=== PATIENT | female | born 1980 | race Caucasian/White ===

== ENCOUNTER 2018-12-18 21:26 | Observation (INO) | payer BC, MEDICAID ==
[~2018-12-18] VITALS: Ht 157.5 cm; Wt 81.2 kg
[2018-12-18 22:00] VITALS: BP 122/87
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
--- NOTE | 2018-12-18 22:10 | NUR ---
PT TRIAGED, SENT BACK TO LOBBY AWAITING FOR BED
--- NOTE | 2018-12-18 23:01 | NUR ---
PT AMBULATED TO BED 6
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
--- NOTE | 2018-12-19 00:15 | NUR ---
PT REFUSING XR AT THIS TIME VSS. WILL CONTIUE TO MONITOR.
--- NOTE | 2018-12-19 00:31 | NUR ---
CALLED REPORT TO L&D NURSE. PT TO BE TRANSFERRED TO OB ROOM 3
[2018-12-19] MEDS ORDERED: ACETAMINOPHEN 325 MG TAB PO ONE (00:35)
[2018-12-19] MEDS ORDERED: ACETAMINOPHEN 325 MG TAB ONE (00:39)
[2018-12-19 01:23] VITALS: BP 127/83
[2018-12-19 01:34] LABS: HEMATOCRIT 33.9 % (36-48); HEMOGLOBIN 10.5 g/dL (12.0-16.0); MEAN CORPUSCULAR HEMOGLOBIN 22 pg (27-31); MEAN CORPUSCULAR HGB CONC 31 g/dL (33-37); MEAN CORPUSCULAR VOLUME 71.1 fL (80-94); PLATELET COUNT (AUTO) 316 K/uL (140-450); RED BLOOD CELL COUNT(AUTO) 4.77 MIL/uL (4.20-5.40); RED CELL DISTRIBUTION WIDTH 17.2 % (11.6-13.7); WHITE BLOOD COUNT (AUTO) 8.7 K/uL (4.8-10.8)
[2018-12-19 02:05] LABS: EOSINOPHILS % (MANUAL) 1 % (0-4); LYMPHOCYTES % (MANUAL) 27 % (20-46); MONOCYTES % (MANUAL) 3 % (5-12)
== END 2018-12-19 05:15 | disposition home or self-care (01) ==
LOC: MED 21:26 → MLD 12-19 00:31 → MED 12-19 00:49 → MLD 12-19 00:50
PROVIDERS: ADMIT Obstetrics & Gynecology; ATTEND Obstetrics & Gynecology
DX: O9A.213 Injury, poisoning and certain other consequences of external causes complicating pregnancy, third trimester (principal); O99.89 Other specified diseases and conditions complicating pregnancy, childbirth and the puerperium; M54.2 Cervicalgia; M54.5 Low back pain; V49.49XA Driver injured in collision with other motor vehicles in traffic accident, initial encounter; Y93.89 Activity, other specified; Y92.488 Other paved roadways as the place of occurrence of the external cause; Z3A.37 37 weeks gestation of pregnancy
CPT/HCPCS: 36415; 76805; 81000; 85025; 85384; 86886; 86900; 86901; 99284; G0378; Q0092; 99283; 99285